=== PATIENT | male | born 1950 | race Caucasian/White ===

== ENCOUNTER 2016-05-01 15:50 | Emergency (ER) | payer OTHER, BC ==
[~2016-05-01] VITALS: Ht 182.9 cm; Wt 112.4 kg
[~2016-05-01 15:50] MED LIST: ALLOPURINOL300 MG PO; ANTACID; ATORVASTATIN CA40 MG PO; CEPHALEXIN500 MG PO; DIAZEPAM5 MG PO; HYDROCODON-ACE1 EAC1 PO; IBUPROFEN600 MG PO; LIPITOR40 MG PO; LOTENSIN20 MG PO; PARICALCITOL2 MCG PO; SYNTHROID112 MCG PO; ZUPLENZ4 MG PO
[2016-05-01 18:53] VITALS: BP 141/90
== END 2016-05-01 18:54 | disposition home or self-care (01) ==
LOC: EME 15:50
DX: S00.12XA Contusion of left eyelid and periocular area, initial encounter (principal); M25.551 Pain in right hip; M54.2 Cervicalgia; W18.39XA Other fall on same level, initial encounter; I10 Essential (primary) hypertension; Z87.891 Personal history of nicotine dependence
CPT/HCPCS: 70450; 72040; 73502; 99281; 99284

== ENCOUNTER 2017-03-19 19:40 | Emergency (ER) | payer OTHER ==
[~2017-03-19] VITALS: Ht 182.9 cm; Wt 111.3 kg
[2017-03-19 21:43] LABS: BASOPHIL (%) 0.6 % (0-1); BASOPHIL COUNT 0.1 K/uL (0-0.1); EOSINOPHIL (%) 1.4 % (0-5); EOSINOPHIL COUNT 0.1 K/uL (0-0.3); HEMATOCRIT 40.4 % (38.0-50.0); HEMOGLOBIN 13.8 G/DL (12.5-16.6); IMMATURE GRANULOCYTE (%) 0.4 % (0.0-0.7); LYMPHOCYTE (%) 12.5 % (15-42); LYMPHOCYTE COUNT 1.1 K/uL (1.0-2.8); MCH 35.3 PG (29.0-34.0); MCHC 34.2 G/DL (30.0-36.0); MCV 103.3 FL (86-99); MONOCYTE (%) 13.4 % (3-12); MONOCYTE COUNT 1.1 K/uL (0-0.8); NEUTROPHIL (%) 71.7 % (45-76); PLATELET COUNT 147 K/uL (156-360); RBC DIS.WIDTH-CV 13.7 % (11.8-14.6); RED BLOOD COUNT 3.91 M/uL (4.00-5.50); WHITE BLOOD COUNT 8.4 K/uL (4.1-10.2)
[2017-03-19 21:50] LABS: CHLORIDE 99 mEq/L (99-109); POTASSIUM 4.1 mEq/L (3.7-5.4); SODIUM 136 mEq/L (136-147)
[2017-03-19 21:51] LABS: GLUCOSE 96 mg/dL (70-99)
[2017-03-19 21:55] LABS: CREATININE 2.5 mg/dL (0.6-1.3); GFR ESTIMATE (CALCULATED) 28 mL/min/ (58.99-99999)
[2017-03-19 21:56] LABS: UREA NITROGEN (BUN) 44 mg/dL (9-23)
[2017-03-19 21:58] LABS: CREATINE KINASE 178 IU/L (1-294)
[2017-03-19] MEDS ORDERED: TAMIFLU75 MG PO (23:38)
[2017-03-20 00:37] VITALS: BP 152/88
== END 2017-03-20 00:38 | disposition home or self-care (01) ==
LOC: EME 19:40
PROVIDERS: Emergency Medicine
DX: J10.1 Influenza due to other identified influenza virus with other respiratory manifestations (principal); I12.9 Hypertensive chronic kidney disease with stage 1 through stage 4 chronic kidney disease, or unspecified chronic kidney disease; N18.9 Chronic kidney disease, unspecified; J45.909 Unspecified asthma, uncomplicated; Z87.891 Personal history of nicotine dependence; Z85.46 Personal history of malignant neoplasm of prostate; Z88.5 Allergy status to narcotic agent
CPT/HCPCS: 71046; 80048; 82550; 85025; 87502; 99281; 99285; J7030